=== PATIENT | male | born 1955 | race African-American/Black ===

== ENCOUNTER 2022-04-15 04:57 | Emergency (ER) | payer MEDICARE, MEDICAID ==
[~2022-04-15] VITALS: Ht 182.9 cm; Wt 119.0 kg
[2022-04-15 05:37] LABS: BG BASE EXCESS -1.7 mmol/L (-2.0-2.0); BG CARBOXYHEMOGLOBIN 2.5 % (0.5-1.5); BG DEOXYHEMOGLOBIN 4.6 % (0.0-5.0); BG FRACTION INSPIRED OXYGEN 32; BG HCO3 ACT 24.6 mmol/L (22.0-26.0); BG METHEMOGLOBIN 0.2 % (0.0-1.5); BG OXYGEN SATURATION 95.3 % (92.0-98.5); BG OXYHEMOGLOBIN 92.7 % (94.0-97.0); BG PH 7.336 (7.350-7.450); BG PO2 78.5 mmHg (75.0-100.0); BG SAMPLE SITE RIGHT RADIAL; BG TOTAL HEMOGLOBIN 15.4 g/dL (12.0-18.0); BG VENT MODE NASAL CANNULA
[2022-04-15 05:41] LABS: BASOPHILS % 0.6 % (0.0-2.0); EOSINOPHILS % 1.3 % (0.0-5.0); HEMATOCRIT. 45.8 % (42.0-52.0); HEMOGLOBIN. 15.1 g/dL (14.0-18.0); LYMPHOCYTES % 18.1 % (20.0-50.0); MEAN CORPUSCULAR HEMOGLOBIN 26.6 pg (28.0-32.0); MEAN CORPUSCULAR VOLUME 80.6 fL (80.0-94.0); MEAN PLATELET VOLUME 8.9 fl (7.4-10.4); MONOCYTES % 10.9 % (2.0-8.0); NEUTROPHILS % 69.1 % (40.0-76.0); PLATELET 171 x1000/uL (130-400); RED BLOOD CELL COUNT 5.68 mill/uL (4.7-6.1); RED CELL DISTRIBUTION WIDTH 16.2 % (11.6-14.6)
[2022-04-15 05:52] LABS: CHLORIDE 109 mEq/L (98-107)
[2022-04-15] MEDS ORDERED: FUROSEMIDE 40MG/4ML VIAL IVP ONE (06:45)
[2022-04-15 07:27] VITALS: BP 95/65
== END 2022-04-15 11:18 | disposition home or self-care (01) ==
LOC: EDBD 04:57 → ER 04:57 → EDBEDREQTM 09:08 → EDBEDREQ 09:08 → ENRESERV 09:47 → ER 11:18 → CANBEDREQ 11:44
DX: I50.9 Heart failure, unspecified (principal); I25.10 Atherosclerotic heart disease of native coronary artery without angina pectoris; Z95.810 Presence of automatic (implantable) cardiac defibrillator; Z20.822 Contact with and (suspected) exposure to COVID-19
CPT/HCPCS: 36415; 36600; 71045; 74176; 80053; 82375; 82805; 83880; 84484; 85025; 87426; 87804; 93005; 96374; 99285; C9803; J1940

== ENCOUNTER 2022-07-06 01:52 | Inpatient (IN) | payer MEDICARE, MEDICAID ==
[~2022-07-06] VITALS: Ht 182.9 cm; Wt 100.0 kg
[2022-07-06] MEDS ORDERED: IPRATROPIUM BROMIDE (0.02%) 0.5MG/2.5ML NEB HHN STA (02:21)
[2022-07-06] MEDS ORDERED: ALBUTEROL (0.083%) 2.5MG/3ML NEB HHN STA (02:21)
[2022-07-06 02:45] LABS: CHLORIDE 106 mEq/L (98-107)
[2022-07-06 02:58] LABS: BASOPHILS % 0.4 % (0.0-2.0); EOSINOPHILS % 0.5 % (0.0-5.0); HEMATOCRIT. 46.9 % (42.0-52.0); HEMOGLOBIN. 15.7 g/dL (14.0-18.0); LYMPHOCYTES % 14.8 % (20.0-50.0); MEAN CORPUSCULAR HEMOGLOBIN 27.4 pg (28.0-32.0); MEAN CORPUSCULAR VOLUME 82.1 fL (80.0-94.0); MONOCYTES % 12.1 % (2.0-8.0); NEUTROPHILS % 72.2 % (40.0-76.0); PLATELET 160 x1000/uL (130-400); RED BLOOD CELL COUNT 5.71 mill/uL (4.7-6.1); RED CELL DISTRIBUTION WIDTH 17.3 % (11.6-14.6)
[2022-07-06] MEDS ORDERED: FUROSEMIDE 40MG/4ML VIAL IVP ONE (04:45)
[2022-07-06 06:00] VITALS: BP 155/95
[2022-07-06] MEDS ORDERED: DOCUSATE SODIUM 100MG CAPSULE PO PRN (06:15)
[2022-07-06] MEDS ORDERED: ACETAMINOPHEN 325MG TABLET PO PRN (06:15)
[2022-07-06] MEDS ORDERED: ONDANSETRON HCL 4MG/2ML INJ IV PRN (06:15)
[2022-07-06] MEDS ORDERED: TRAMADOL 50MG TABLET PO PRN (06:15)
[2022-07-06] MEDS ORDERED: MAGNESIUM/ALUMINUM HYDROXIDE/SIMETHICONE 30ML UDC PO PRN (06:15)
[2022-07-06] MEDS ORDERED: GUAIFENESIN 200MG/10ML SUGAR FREE UDC PO PRN (06:15)
[2022-07-06] MEDS ORDERED: FUROSEMIDE 40MG/4ML VIAL IV SCH (06:30)
[2022-07-06] MEDS ORDERED: ENOXAPARIN 40MG/0.4ML SYR SUBCUT SCH (09:00)
[2022-07-06] MEDS ORDERED: CARVEDILOL 3.125 MG TABLET PO SCH (09:00)
== END 2022-07-06 06:27 | disposition left against medical advice (07) | DRG 189 ==
LOC: ER 01:52 → MICUSO 05:30
PROVIDERS: ADMIT Hospitalist; ATTEND Hospitalist
PROC: 5A09357 Assistance with Respiratory Ventilation, Less than 24 Consecutive Hours, Continuous Positive Airway Pressure (ICD-10-PCS; principal; 2022-07-06)
DX: J96.00 Acute respiratory failure, unspecified whether with hypoxia or hypercapnia (principal); I11.0 Hypertensive heart disease with heart failure; I50.9 Heart failure, unspecified; Z95.0 Presence of cardiac pacemaker; Z53.29 Procedure and treatment not carried out because of patient's decision for other reasons
CPT/HCPCS: 36415; 71045; 80053; 83605; 83880; 84484; 85025; 85379; 94640; 94660; 99291; J1940

== ENCOUNTER 2023-08-01 10:58 | Emergency (ER) | payer MEDICARE, MEDICAID ==
[~2023-08-01] VITALS: Ht 188 cm; Wt 86.0 kg
[2023-08-01 11:16] VITALS: TEMP 98.7; O2SAT 94
[2023-08-01 11:35] LABS: BASOPHILS % 0.2 % (0.0-2.0); EOSINOPHILS % 0.9 % (0.0-5.0); HEMATOCRIT. 43.2 % (42.0-52.0); HEMOGLOBIN. 14.1 g/dL (14.0-18.0); LYMPHOCYTES % 7.9 % (20.0-50.0); MEAN CORPUSCULAR HEMOGLOBIN 26.7 pg (28.0-32.0); MEAN CORPUSCULAR HGB CONC 32.6 g/dL (31.0-37.0); MEAN PLATELET VOLUME 8.7 fl (7.4-10.4); MONOCYTES % 8.7 % (2.0-8.0); NEUTROPHILS % 82.3 % (40.0-76.0); PLATELET 205 x1000/uL (130-400); RED BLOOD CELL COUNT 5.27 mill/uL (4.7-6.1); RED CELL DISTRIBUTION WIDTH 16.8 % (11.6-14.6); WHITE BLOOD COUNT 10.9 x1000/uL (4.5-11.0)
[2023-08-01 11:42] LABS: CHLORIDE 107 mEq/L (98-107); INDEX HEMOLYSI 1 (1-3); INDEX ICTERIC 1 (1-4); INDEX LIPEMIC 1 (1-3); SODIUM 140 mEq/L (136-145)
[2023-08-01 11:48] LABS: ALANINE AMINOTRANSFERASE 43 IU/L (13-61); ALBUMIN 2.2 g/dL (3.4-5.0); ASPARTATE AMINOTRANSFERASE 21 IU/L (15-37); BILIRUBIN TOTAL 0.5 mg/dL (0.1-1.0); CARBON DIOXIDE 30 mEq/L (21-32); CREATININE 1.5 mg/dL (0.6-1.3); GLUCOSE 227 mg/dL (70-105); PROTEIN TOTAL 6.6 g/dL (6.0-8.3); UREA NITROGEN BLOOD 35 mg/dL (7-21)
[2023-08-01] MEDS ORDERED: VANCOMYCIN 1G PREMIX 200 ML IV ONE (12:45)
[2023-08-01] MEDS ORDERED: PIPERACILLIN/TAZ 3.375G PREMIX 50 ML IV ONE (12:45)
[2023-08-01 13:34] VITALS: BP 132/63; PULSE 85; RESP 25
== END 2023-08-01 14:47 | disposition left against medical advice (07) ==
LOC: ER 10:58 → CANBEDREQ 14:42 → ER 14:47
DX: L08.89 Other specified local infections of the skin and subcutaneous tissue (principal); I10 Essential (primary) hypertension; E11.9 Type 2 diabetes mellitus without complications; I25.2 Old myocardial infarction; Z98.890 Other specified postprocedural states
CPT/HCPCS: 99284; 96365; 80053; 85025; 85651; 87040; 36415; 73630; 96368; J2543; J3370

== ENCOUNTER 2023-08-03 01:46 | Emergency (ER) | payer MEDICARE, MEDICAID ==
[~2023-08-03] VITALS: Ht 188 cm; Wt 90.0 kg
[2023-08-03 01:59] VITALS: BP 138/76; PULSE 81; RESP 16; TEMP 97.9; O2SAT 96
[2023-08-03] MEDS ORDERED: SODIUM CHLORIDE 0.9% 1,000 ML IV ONE (03:00)
[2023-08-03] MEDS ORDERED: VANCOMYCIN 1G PREMIX 200 ML IV ONE (03:00)
[2023-08-03] MEDS ORDERED: PIPERACILLIN/TAZ 3.375G PREMIX 50 ML IV ONE (03:00)
== END 2023-08-03 03:27 | disposition left against medical advice (07) ==
LOC: ER 01:46
DX: Z53.21 Procedure and treatment not carried out due to patient leaving prior to being seen by health care provider (principal)
CPT/HCPCS: 99281; J7030

== ENCOUNTER 2023-09-16 13:19 | Inpatient (IN) | payer MEDICARE, MEDICAID ==
[~2023-09-16] VITALS: Ht 180.3 cm; Wt 85.7 kg
[2023-09-16] MEDS ORDERED: SODIUM CHLORIDE 0.9% 1000ML BAG (SEPSIS BOLUS) IV ONE (14:00)
[2023-09-16 14:10] LABS: HEMOGLOBIN. 13.5 g/dL (14.0-18.0); MEAN CORPUSCULAR HEMOGLOBIN 25.6 pg (28.0-32.0); MEAN CORPUSCULAR HGB CONC 32.3 g/dL (31.0-37.0); MEAN CORPUSCULAR VOLUME 79.5 fL (80.0-94.0); MEAN PLATELET VOLUME 8.3 fl (7.4-10.4); PLATELET 357 x1000/uL (130-400); RED BLOOD CELL COUNT 5.28 mill/uL (4.7-6.1); RED CELL DISTRIBUTION WIDTH 17.4 % (11.6-14.6); WHITE BLOOD COUNT 19.4 x1000/uL (4.5-11.0)
[2023-09-16 14:14] LABS: INR 1.3; PROTHROMBIN TIME 13.9 sec (9.6-11.0)
[2023-09-16 14:18] LABS: DIFFERENTIAL COMMENT 1
[2023-09-16 14:20] LABS: CLARITY URINE CLEAR (CLEAR); COLOR URINE DARK YELLOW (YELLOW); GLUCOSE URINE NEGATIVE (NEGATIVE); KETONES URINE TRACE (NEGATIVE); LEUKOCYTE ESTERASE URINE NEGATIVE (NEGATIVE); NITRITE URINE NEGATIVE (NEGATIVE); OCCULT BLOOD URINE 2+ (NEGATIVE); PROTEIN URINE 3+ (NEGATIVE); SPECIFIC GRAVITY URINE 1.017 (1.005-1.030)
[2023-09-16 14:25] LABS: SQUAMOUS EPITHELIAL CELL URINE 1+ /lpf (RARE/1+); WBC URINE 0-2 /hpf (0-2); YEAST URINE NONE SEEN
[2023-09-16 14:31] LABS: BG BASE EXCESS 2.3 mmol/L (-2.0-2.0); BG CARBOXYHEMOGLOBIN 1.2 % (0.5-1.5); BG DEOXYHEMOGLOBIN 9.8 % (0.0-5.0); BG FRACTION INSPIRED OXYGEN 21; BG HCO3 ACT 27.8 mmol/L (22.0-26.0); BG METHEMOGLOBIN 0.2 % (0.0-1.5); BG OXYGEN SATURATION 90.1 % (92.0-98.5); BG OXYHEMOGLOBIN 88.8 % (94.0-97.0); BG PCO2 46.6 mmHg (35.0-45.0); BG PH 7.394 (7.350-7.450); BG PO2 63.8 mmHg (75.0-100.0); BG SAMPLE SITE RIGHT RADIAL; BG TOTAL HEMOGLOBIN 14.4 g/dL (12.0-18.0); BG VENT MODE ROOM AIR
[2023-09-16 14:36] LABS: CHLORIDE 119 mEq/L (98-107); INDEX HEMOLYSI 1 (1-3); INDEX ICTERIC 1 (1-4); INDEX LIPEMIC 1 (1-3); POTASSIUM 4.2 mEq/L (3.5-5.1); SODIUM 153 mEq/L (136-145)
[2023-09-16 14:38] LABS: CALCIUM 8.9 mg/dL (8.5-10.1)
[2023-09-16 14:45] LABS: ALANINE AMINOTRANSFERASE 71 IU/L (13-61); ALBUMIN 1.9 g/dL (3.4-5.0); ASPARTATE AMINOTRANSFERASE 76 IU/L (15-37); BILIRUBIN TOTAL 1.1 mg/dL (0.1-1.0); CARBON DIOXIDE 28 mEq/L (21-32); CREATININE 2.1 mg/dL (0.6-1.3); GLUCOSE 159 mg/dL (70-105); PROTEIN TOTAL 6.9 g/dL (6.0-8.3); UREA NITROGEN BLOOD 53 mg/dL (7-21)
[2023-09-16 14:47] LABS: COARSE GRANULAR CASTS URINE 0-5 /lpf; FINE GRANULAR CASTS URINE 0-5 /lpf; WAXY CASTS URINE 0-5 /lpf
[2023-09-16 14:48] LABS: MUCUS URINE 1+ /lpf (NONE/TRACE)
[2023-09-16 14:49] LABS: BACTERIA URINE 1+
[2023-09-16 15:07] LABS: ANISOCYTOSIS 1+; MICROCYTOSIS 1+; PLATELET ESTIMATE NORMAL
[2023-09-16] MEDS ORDERED: VANCOMYCIN 1G PREMIX 200 ML IV SCH ×2 (16:00→18:00)
[2023-09-16] MEDS ORDERED: PIPERACILLIN/TAZOBACTAM 3.375GM/50ML PREMIX IV ONE (16:00)
[2023-09-16] MEDS ORDERED: PIPERACILLIN/TAZ 3.375G PREMIX 50 ML IV NR ×2 (16:15→19:00)
[2023-09-16 17:16] LABS: AMMONIA 26 uMol/L (<32)
[2023-09-16] MEDS ORDERED: DIPHENHYDRAMINE 50MG/ML VIAL IV PRN (18:00)
[2023-09-16] MEDS ORDERED: MAGNESIUM/ALUMINUM HYDROXIDE/SIMETHICONE 30ML UDC PO PRN (18:00)
[2023-09-16] MEDS ORDERED: ACETAMINOPHEN 325MG TABLET PO PRN ×2 (18:00)
[2023-09-16] MEDS ORDERED: ONDANSETRON HCL 4MG/2ML INJ IV PRN (18:00)
[2023-09-16] MEDS ORDERED: CLONIDINE 0.1MG TABLET PO PRN (18:00)
[2023-09-16] MEDS: INSULIN LISPRO 100 UNITS/ML SUBCUT SCH ×2 (18:20→21:00)
[2023-09-16 20:00] VITALS: BP_SYST 130; BP_SYST 132; BP_DIAS 67; BP_DIAS 72; PULSE 75; PULSE 98; RESP 18; TEMP 97.3; TEMP 97.5
[2023-09-16] MEDS ORDERED: VANCOMYCIN 750MG PREMIX 150 ML IV NR (20:00)
[2023-09-16] MEDS: BLOOD SUGAR DIAGNOSTIC STRIP TEST SCH (21:05)
[2023-09-17] VITALS (55 sets, daily range): BP systolic 73–154; BP diastolic 51–94; PULSE 60–112; RESP 18–28; TEMP 94.8–98.5
[2023-09-17] MEDS: SODIUM CHLORIDE 0.45% 1,000 ML IV SCH ×3 (01:44→11:28)
[2023-09-17 05:42] LABS: HEMATOCRIT. 42.1 % (42.0-52.0); HEMOGLOBIN. 13.6 g/dL (14.0-18.0); MEAN CORPUSCULAR HEMOGLOBIN 26.2 pg (28.0-32.0); MEAN CORPUSCULAR HGB CONC 32.4 g/dL (31.0-37.0); MEAN CORPUSCULAR VOLUME 80.9 fL (80.0-94.0); MEAN PLATELET VOLUME 8.6 fl (7.4-10.4); PLATELET 313 x1000/uL (130-400); RED CELL DISTRIBUTION WIDTH 18.1 % (11.6-14.6); WHITE BLOOD COUNT 16.4 x1000/uL (4.5-11.0)
[2023-09-17] MEDS ORDERED: PIPERACILLIN/TAZOBACTAM 3.375G in DEXT 5% WATER 50ML IV SCH (06:00)
[2023-09-17 06:30] LABS: DIFFERENTIAL COMMENT 1
[2023-09-17] MEDS ORDERED: INSULIN LISPRO 100 UNITS/ML SUBCUT NR (06:45)
[2023-09-17] MEDS ORDERED: DEXTROSE 50% WATER 50ML SYRINGE IV PRN (06:45)
[2023-09-17 07:07] LABS: CHLORIDE 118 mEq/L (98-107); INDEX HEMOLYSI 1 (1-3); INDEX ICTERIC 1 (1-4); INDEX LIPEMIC 1 (1-3); POTASSIUM 4.5 mEq/L (3.5-5.1); SODIUM 150 mEq/L (136-145)
[2023-09-17 07:14] LABS: ALANINE AMINOTRANSFERASE 62 IU/L (13-61); ALBUMIN 1.7 g/dL (3.4-5.0); ASPARTATE AMINOTRANSFERASE 47 IU/L (15-37); BILIRUBIN TOTAL 1.1 mg/dL (0.1-1.0); CALCIUM 8.2 mg/dL (8.5-10.1); CARBON DIOXIDE 26 mEq/L (21-32); CREATININE 1.8 mg/dL (0.6-1.3); PHOSPHORUS 5.6 mg/dL (2.5-4.9); PROTEIN TOTAL 6.3 g/dL (6.0-8.3); UREA NITROGEN BLOOD 56 mg/dL (7-21)
[2023-09-17] MEDS: INSULIN GLARGINE 100 UNITS/ML SUBCUT SCH (07:16)
[2023-09-17] MEDS ORDERED: BLOOD SUGAR DIAGNOSTIC STRIP TEST SCH (07:40)
[2023-09-17] MEDS: BLOOD SUGAR DIAGNOSTIC STRIP TEST SCH ×4 (07:40→20:49)
[2023-09-17 08:00] LABS: GLUCOSE 415 mg/dL (70-105)
[2023-09-17] MEDS: INSULIN LISPRO 100 UNITS/ML SUBCUT SCH ×5 (08:51→21:11)
[2023-09-17] MEDS ORDERED: INSULIN GLARGINE 100 UNITS/ML SUBCUT SCH (10:00)
[2023-09-17] MEDS ORDERED: NOREPINEPHRINE 8 MG in DEXT 5% WATER 242 ML IV PRN (11:45)
[2023-09-17 11:54] LABS: BG BASE EXCESS -0.3 mmol/L (-2.0-2.0); BG CARBOXYHEMOGLOBIN 0.9 % (0.5-1.5); BG DEOXYHEMOGLOBIN 0.4 % (0.0-5.0); BG FRACTION INSPIRED OXYGEN 100; BG HCO3 ACT 24.9 mmol/L (22.0-26.0); BG METHEMOGLOBIN 0.2 % (0.0-1.5); BG OXYGEN SATURATION 99.6 % (92.0-98.5); BG OXYHEMOGLOBIN 98.5 % (94.0-97.0); BG PCO2 42.4 mmHg (35.0-45.0); BG PH 7.386 (7.350-7.450); BG PO2 290.4 mmHg (75.0-100.0); BG SAMPLE SITE ALINE; BG TOTAL HEMOGLOBIN 13.6 g/dL (12.0-18.0); BG TOTAL RESPIRATORY RATE 20 b/min; BG VENT MODE VENT - AC
[2023-09-17 13:45] LABS: PLATELET ESTIMATE NORMAL
[2023-09-17] MEDS: PIPERACILLIN/TAZOBACTAM 3.375G in DEXT 5% WATER 50ML IV SCH ×2 (14:33→21:48)
[2023-09-17] MEDS: VANCOMYCIN 1G PREMIX 200 ML IV SCH (14:33)
[2023-09-17] MEDS: MIDODRINE HCL 5MG TABLET NG SCH ×2 (15:41→23:43)
[2023-09-17 15:49] LABS: HEMOGLOBIN 13.6 g/dL (14.0-18.0); MEAN CORPUSCULAR HEMOGLOBIN 25.7 pg (28.0-32.0); MEAN CORPUSCULAR HGB CONC 32.3 g/dL (31.0-37.0); MEAN CORPUSCULAR VOLUME 79.8 fL (80.0-94.0); PLATELET 402 x1000/uL (130-400); RED BLOOD CELL COUNT 5.27 mill/uL (4.7-6.1); RED CELL DISTRIBUTION WIDTH 17.7 % (11.6-14.6); WHITE BLOOD COUNT 16.3 x1000/uL (4.5-11.0)
[2023-09-17 16:15] LABS: CHLORIDE 114 mEq/L (98-107); INDEX HEMOLYSI 1 (1-3); INDEX ICTERIC 1 (1-4); INDEX LIPEMIC 1 (1-3); SODIUM 150 mEq/L (136-145)
[2023-09-17] MEDS: NOREPINEPHRINE 8MG/250ML PMX 250ML IV PRN (16:16)
[2023-09-17 16:25] LABS: ALANINE AMINOTRANSFERASE 57 IU/L (13-61); ALBUMIN 1.6 g/dL (3.4-5.0); ASPARTATE AMINOTRANSFERASE 37 IU/L (15-37); BILIRUBIN TOTAL 0.9 mg/dL (0.1-1.0); CARBON DIOXIDE 30 mEq/L (21-32); CREATININE 1.8 mg/dL (0.6-1.3); GLUCOSE 336 mg/dL (70-105); NT PRO B-TYPE NATRIURETIC PEP 6011 pg/mL (5-125); PROTEIN TOTAL 6.3 g/dL (6.0-8.3); TROPONIN I HIGH SENSITIVITY 40 ng/L (<78); UREA NITROGEN BLOOD 44 mg/dL (7-21)
[2023-09-17] MEDS ORDERED: FENTANYL CITRATE/PF 2,500 MCG in SODIUM CHLORIDE 0.9% 200 ML IV PRN (18:45)
[2023-09-17] MEDS: PROPOFOL 10MG/ML 100ML 100 ML IV PRN ×2 (18:48→21:13)
[2023-09-17] MEDS: IPRATROPIUM/ALBUTEROL 0.5-3(2.5)MG/3ML NEB HHN SCH (20:53)
[2023-09-18] VITALS (92 sets, daily range): BP systolic 84–162; BP diastolic 25–102; PULSE 60–89; RESP 18–39; TEMP 96.4–98.6
[2023-09-18] MEDS: PROPOFOL 10MG/ML 100ML 100 ML IV PRN ×7 (01:08→23:19)
[2023-09-18] MEDS: IPRATROPIUM/ALBUTEROL 0.5-3(2.5)MG/3ML NEB HHN SCH ×4 (01:19→20:58)
[2023-09-18 05:13] LABS: HEMATOCRIT. 40.8 % (42.0-52.0); HEMOGLOBIN. 13.1 g/dL (14.0-18.0); MEAN CORPUSCULAR HEMOGLOBIN 25.3 pg (28.0-32.0); MEAN CORPUSCULAR HGB CONC 32.1 g/dL (31.0-37.0); MEAN CORPUSCULAR VOLUME 78.9 fL (80.0-94.0); MEAN PLATELET VOLUME 8.3 fl (7.4-10.4); PLATELET 356 x1000/uL (130-400); RED BLOOD CELL COUNT 5.17 mill/uL (4.7-6.1); RED CELL DISTRIBUTION WIDTH 17.9 % (11.6-14.6); WHITE BLOOD COUNT 21.1 x1000/uL (4.5-11.0)
[2023-09-18] MEDS: SODIUM CHLORIDE 0.45% 1,000 ML IV SCH (05:21)
[2023-09-18 05:27] LABS: POTASSIUM 3.5 mEq/L (3.5-5.1)
[2023-09-18 05:39] LABS: CALCIUM 8.6 mg/dL (8.5-10.1); CREATININE 1.8 mg/dL (0.6-1.3)
[2023-09-18] MEDS: PIPERACILLIN/TAZOBACTAM 3.375G in DEXT 5% WATER 50ML IV SCH ×3 (06:18→21:24)
[2023-09-18] MEDS: NOREPINEPHRINE 8MG/250ML PMX 250ML IV PRN (06:22)
[2023-09-18] MEDS: BLOOD SUGAR DIAGNOSTIC STRIP TEST SCH ×4 (06:41→23:32)
[2023-09-18] MEDS ORDERED: KCL 20MEQ/100ML PREMIX 100 ML IV NR (06:45)
[2023-09-18] MEDS: INSULIN LISPRO 100 UNITS/ML SUBCUT SCH ×4 (06:48→23:43)
[2023-09-18] MEDS: MIDODRINE HCL 5MG TABLET NG SCH ×3 (06:48→23:17)
[2023-09-18 07:03] LABS: DIFFERENTIAL COMMENT 1
[2023-09-18] MEDS: INSULIN GLARGINE 100 UNITS/ML SUBCUT SCH (10:00)
[2023-09-18 10:19] LABS: BG BASE EXCESS 4.2 mmol/L (-2.0-2.0); BG CARBOXYHEMOGLOBIN 0.3 % (0.5-1.5); BG DEOXYHEMOGLOBIN 1.2 % (0.0-5.0); BG FRACTION INSPIRED OXYGEN 80; BG HCO3 ACT 27.6 mmol/L (22.0-26.0); BG METHEMOGLOBIN 0.3 % (0.0-1.5); BG OXYGEN SATURATION 98.8 % (92.0-98.5); BG OXYHEMOGLOBIN 98.2 % (94.0-97.0); BG PCO2 37.3 mmHg (35.0-45.0); BG PH 7.487 (7.350-7.450); BG PO2 176.3 mmHg (75.0-100.0); BG SAMPLE SITE ALINE; BG TOTAL HEMOGLOBIN 14.3 g/dL (12.0-18.0); BG TOTAL RESPIRATORY RATE 20 b/min; BG VENT MODE VENT - AC
[2023-09-18 10:57] LABS: ANISOCYTOSIS 1+; PLATELET ESTIMATE NORMAL
[2023-09-18] MEDS: VANCOMYCIN 1G PREMIX 200 ML IV SCH (13:02)
[2023-09-18] MEDS: DEXTROSE 5% WATER 1,000 ML IV SCH (13:12)
[2023-09-18 16:15] LABS: INDEX HEMOLYSI 2 (1-3)
[2023-09-18 16:21] LABS: CREATINE KINASE 161 IU/L (39-308)
[2023-09-19] VITALS (97 sets, daily range): BP systolic 85–133; BP diastolic 44–80; PULSE 61–116; RESP 9–27; TEMP 97–98.3
[2023-09-19] MEDS: IPRATROPIUM/ALBUTEROL 0.5-3(2.5)MG/3ML NEB HHN SCH ×4 (02:30→20:34)
[2023-09-19] MEDS: PROPOFOL 10MG/ML 100ML 100 ML IV PRN ×5 (02:47→20:56)
[2023-09-19 05:09] LABS: HEMATOCRIT. 41.8 % (42.0-52.0); HEMOGLOBIN. 13.3 g/dL (14.0-18.0); MEAN CORPUSCULAR HEMOGLOBIN 25.3 pg (28.0-32.0); MEAN CORPUSCULAR HGB CONC 31.9 g/dL (31.0-37.0); MEAN CORPUSCULAR VOLUME 79.3 fL (80.0-94.0); MEAN PLATELET VOLUME 8.1 fl (7.4-10.4); PLATELET 273 x1000/uL (130-400); RED BLOOD CELL COUNT 5.27 mill/uL (4.7-6.1); RED CELL DISTRIBUTION WIDTH 18.1 % (11.6-14.6)
[2023-09-19 05:26] LABS: POTASSIUM 3.5 mEq/L (3.5-5.1)
[2023-09-19 05:40] LABS: CALCIUM 8.1 mg/dL (8.5-10.1); CREATININE 1.8 mg/dL (0.6-1.3)
[2023-09-19] MEDS: BLOOD SUGAR DIAGNOSTIC STRIP TEST SCH ×3 (05:44→18:05)
[2023-09-19] MEDS: DEXTROSE 5% WATER 1,000 ML IV SCH (06:06)
[2023-09-19] MEDS: PIPERACILLIN/TAZOBACTAM 3.375G in DEXT 5% WATER 50ML IV SCH ×3 (06:06→22:11)
[2023-09-19] MEDS: INSULIN LISPRO 100 UNITS/ML SUBCUT SCH ×3 (06:07→18:07)
[2023-09-19] MEDS: MIDODRINE HCL 5MG TABLET NG SCH ×3 (06:08→22:11)
[2023-09-19 06:42] LABS: DIFFERENTIAL COMMENT 1
[2023-09-19 08:17] LABS: ANISOCYTOSIS 1+; NUCLEATED RED BLOOD CELLS 1 /100 WBC; PLATELET ESTIMATE NORMAL
[2023-09-19] MEDS ORDERED: POLYMYXIN B SULFATE 500000 UNITS/VIAL ONE (08:43)
[2023-09-19] MEDS ORDERED: LIDOCAINE HCL 1% 10 MG/ML 10ML VIAL ONE (08:43)
[2023-09-19] MEDS ORDERED: VANCOMYCIN HCL 1 GM/VIAL ONE (08:43)
[2023-09-19] MEDS ORDERED: BUPIVACAINE HCL/PF 0.5% (5MG/ML) 10ML ONE (08:43)
[2023-09-19] MEDS ORDERED: GENTAMICIN SULF 40MG/ML 2ML VIAL ONE (08:43)
[2023-09-19] MEDS: VANCOMYCIN 1G PREMIX 200 ML IV SCH (09:11)
[2023-09-19] MEDS: INSULIN GLARGINE 100 UNITS/ML SUBCUT SCH (09:11)
[2023-09-19] MEDS ORDERED: ROCURONIUM BROMIDE 10MG/ML VIAL 5ML IV ONE ×2 (10:14→11:26)
[2023-09-19] MEDS ORDERED: DEXAMETHASONE 4MG/ML 1ML VIAL ONE (10:50)
[2023-09-19] MEDS ORDERED: ONDANSETRON HCL 4MG/2ML INJ ONE (10:50)
[2023-09-19] MEDS ORDERED: CARVEDILOL 3.125 MG TABLET NG NR (13:30)
[2023-09-19] MEDS ORDERED: KCL 20MEQ/100ML PREMIX 100 ML IV NR (13:30)
[2023-09-19] MEDS: CARVEDILOL 3.125 MG TABLET NG SCH (20:26)
[2023-09-20] VITALS (104 sets, daily range): BP systolic 86–142; BP diastolic 44–86; PULSE 64–111; RESP 0–33; TEMP 97.8–98.3
[2023-09-20] MEDS: BLOOD SUGAR DIAGNOSTIC STRIP TEST SCH ×5 (00:08→23:11)
[2023-09-20] MEDS: INSULIN LISPRO 100 UNITS/ML SUBCUT SCH ×5 (00:14→23:24)
[2023-09-20] MEDS: IPRATROPIUM/ALBUTEROL 0.5-3(2.5)MG/3ML NEB HHN SCH ×4 (01:08→20:16)
[2023-09-20] MEDS: PROPOFOL 10MG/ML 100ML 100 ML IV PRN ×6 (01:38→23:50)
[2023-09-20] MEDS: DEXTROSE 5% WATER 1,000 ML IV SCH ×3 (05:39→22:39)
[2023-09-20 05:45] LABS: POTASSIUM 4.1 mEq/L (3.5-5.1)
[2023-09-20] MEDS: PIPERACILLIN/TAZOBACTAM 3.375G in DEXT 5% WATER 50ML IV SCH ×2 (05:47→14:40)
[2023-09-20 05:54] LABS: ALBUMIN 1.3 g/dL (3.4-5.0); CALCIUM 7.6 mg/dL (8.5-10.1); CREATININE 1.6 mg/dL (0.6-1.3); PREALBUMIN 5.6 mg/dL (20.0-40.0); VANCOMYCIN TROUGH 12.3 ug/mL (5.0-10.0)
[2023-09-20] MEDS: MIDODRINE HCL 5MG TABLET NG SCH ×3 (06:29→22:33)
[2023-09-20 08:21] LABS: BG BASE EXCESS 3.9 mmol/L (-2.0-2.0); BG CARBOXYHEMOGLOBIN 0.7 % (0.5-1.5); BG DEOXYHEMOGLOBIN 5.1 % (0.0-5.0); BG HCO3 ACT 28.4 mmol/L (22.0-26.0); BG METHEMOGLOBIN 0.1 % (0.0-1.5); BG OXYGEN SATURATION 94.9 % (92.0-98.5); BG OXYHEMOGLOBIN 94.1 % (94.0-97.0); BG PCO2 42.6 mmHg (35.0-45.0); BG PH 7.442 (7.350-7.450); BG PO2 74.6 mmHg (75.0-100.0); BG SAMPLE SITE ALINE; BG TOTAL HEMOGLOBIN 13.4 g/dL (12.0-18.0); BG VENT MODE VENT - AC
[2023-09-20] MEDS: CARVEDILOL 3.125 MG TABLET NG SCH ×2 (08:50→21:26)
[2023-09-20] MEDS ORDERED: VANCOMYCIN 1.25GM PMX (XELLIA) 250 ML IV SCH (10:00)
[2023-09-20] MEDS ORDERED: LIDOCAINE HCL 1% 10 MG/ML 10ML VIAL ONE (10:00)
[2023-09-20] MEDS: INSULIN GLARGINE 100 UNITS/ML SUBCUT SCH (10:46)
[2023-09-20] MEDS: LEVETIRACETAM 500MG PREMIX 100 ML IV SCH ×2 (15:21→22:33)
[2023-09-20] MEDS: MEROPENEM 1,000 MG in SODIUM CHLORIDE 0.9% 100 ML IV SCH ×2 (15:24→23:23)
[2023-09-21] VITALS (101 sets, daily range): BP systolic 97–139; BP diastolic 58–87; PULSE 68–91; RESP 0–24; TEMP 97.5–99.4
[2023-09-21] MEDS: IPRATROPIUM/ALBUTEROL 0.5-3(2.5)MG/3ML NEB HHN SCH ×4 (01:02→20:18)
[2023-09-21] MEDS ORDERED: PROPOFOL 10MG/ML 100ML 100 ML IV PRN ×2 (01:15→20:30)
[2023-09-21] MEDS: PROPOFOL 10MG/ML 100ML 100 ML IV PRN (04:03)
[2023-09-21] MEDS: BLOOD SUGAR DIAGNOSTIC STRIP TEST SCH ×3 (05:23→17:21)
[2023-09-21 05:45] LABS: HEMATOCRIT. 39.5 % (42.0-52.0); HEMOGLOBIN. 12.9 g/dL (14.0-18.0); MEAN CORPUSCULAR HEMOGLOBIN 26.1 pg (28.0-32.0); MEAN CORPUSCULAR HGB CONC 32.6 g/dL (31.0-37.0); MEAN CORPUSCULAR VOLUME 80.2 fL (80.0-94.0); MEAN PLATELET VOLUME 8.9 fl (7.4-10.4); PLATELET 212 x1000/uL (130-400); RED BLOOD CELL COUNT 4.92 mill/uL (4.7-6.1); RED CELL DISTRIBUTION WIDTH 17.9 % (11.6-14.6); WHITE BLOOD COUNT 12.3 x1000/uL (4.5-11.0)
[2023-09-21 06:02] LABS: CALCIUM 7.7 mg/dL (8.5-10.1); CREATININE 1.7 mg/dL (0.6-1.3); PHOSPHORUS 2.9 mg/dL (2.5-4.9)
[2023-09-21 06:29] LABS: DIFFERENTIAL COMMENT 1
[2023-09-21] MEDS: MIDODRINE HCL 5MG TABLET NG SCH ×3 (06:33→22:40)
[2023-09-21] MEDS: INSULIN LISPRO 100 UNITS/ML SUBCUT SCH ×3 (06:37→17:21)
[2023-09-21] MEDS: MEROPENEM 1,000 MG in SODIUM CHLORIDE 0.9% 100 ML IV SCH ×2 (08:40→17:20)
[2023-09-21] MEDS ORDERED: LORAZEPAM 2MG/ML CPJ IV NR (10:00)
[2023-09-21] MEDS: LEVETIRACETAM 500MG PREMIX 100 ML IV SCH (10:01)
[2023-09-21] MEDS: INSULIN GLARGINE 100 UNITS/ML SUBCUT SCH (10:11)
[2023-09-21 12:34] LABS: ANISOCYTOSIS 1+; MICROCYTOSIS 1+; PLATELET ESTIMATE NORMAL
[2023-09-21] MEDS: LEVETIRACETAM 1,000 MG in SODIUM CHLORIDE 0.9% 100 ML IV SCH (21:10)
[2023-09-21] MEDS: CARVEDILOL 6.25 MG TABLET NG SCH (21:10)
[2023-09-22] VITALS (91 sets, daily range): BP systolic 94–154; BP diastolic 59–124; PULSE 70–120; RESP 0–32; TEMP 98.6–99.7
[2023-09-22] MEDS: BLOOD SUGAR DIAGNOSTIC STRIP TEST SCH ×4 (00:27→18:02)
[2023-09-22] MEDS: INSULIN LISPRO 100 UNITS/ML SUBCUT SCH ×4 (00:31→18:20)
[2023-09-22] MEDS: IPRATROPIUM/ALBUTEROL 0.5-3(2.5)MG/3ML NEB HHN SCH ×4 (00:37→20:17)
[2023-09-22] MEDS: MEROPENEM 1,000 MG in SODIUM CHLORIDE 0.9% 100 ML IV SCH (06:55)
[2023-09-22] MEDS: MIDODRINE HCL 5MG TABLET NG SCH ×3 (07:00→22:57)
[2023-09-22] MEDS: LEVETIRACETAM 1,000 MG in SODIUM CHLORIDE 0.9% 100 ML IV SCH ×2 (08:40→22:10)
[2023-09-22] MEDS: CARVEDILOL 6.25 MG TABLET NG SCH ×3 (08:40→22:04)
[2023-09-22] MEDS: INSULIN GLARGINE 100 UNITS/ML SUBCUT SCH ×2 (10:15→22:10)
[2023-09-22 11:01] LABS: BASOPHILS % 0.3 % (0.0-2.0); DIFFERENTIAL COMMENT 0; EOSINOPHILS % 0.9 % (0.0-5.0); HEMOGLOBIN. 12.3 g/dL (14.0-18.0); LYMPHOCYTES % 9.3 % (20.0-50.0); MEAN CORPUSCULAR HEMOGLOBIN 25.4 pg (28.0-32.0); MEAN CORPUSCULAR HGB CONC 32.5 g/dL (31.0-37.0); MEAN CORPUSCULAR VOLUME 78.1 fL (80.0-94.0); MEAN PLATELET VOLUME 8.2 fl (7.4-10.4); MONOCYTES % 10.3 % (2.0-8.0); NEUTROPHILS % 79.2 % (40.0-76.0); PLATELET 225 x1000/uL (130-400); RED BLOOD CELL COUNT 4.87 mill/uL (4.7-6.1); RED CELL DISTRIBUTION WIDTH 17.4 % (11.6-14.6); WHITE BLOOD COUNT 7.8 x1000/uL (4.5-11.0)
[2023-09-22] MEDS: LORAZEPAM 2MG/ML CPJ IV PRN (11:10)
[2023-09-22 12:03] LABS: POTASSIUM 3.8 mEq/L (3.5-5.1)
[2023-09-22 12:09] LABS: CALCIUM 8.2 mg/dL (8.5-10.1); CREATININE 1.6 mg/dL (0.6-1.3)
[2023-09-22] MEDS: PHENYTOIN 100 MG/4 ML UDC NG SCH ×2 (13:13→22:47)
[2023-09-22] MEDS: VANCOMYCIN 1.25GM PMX (XELLIA) 250 ML IV SCH (15:56)
[2023-09-22] MEDS: CLINDAMYCIN HCL 150MG CAPSULE PO SCH (18:20)
[2023-09-23] VITALS (87 sets, daily range): BP systolic 101–162; BP diastolic 53–141; PULSE 66–79; RESP 7–31; TEMP 98.5–98.7
[2023-09-23] MEDS: CLINDAMYCIN HCL 150MG CAPSULE PO SCH ×5 (00:15→23:54)
[2023-09-23] MEDS: BLOOD SUGAR DIAGNOSTIC STRIP TEST SCH ×4 (00:15→17:47)
[2023-09-23] MEDS: PROPOFOL 10MG/ML 100ML 100 ML IV PRN ×3 (00:32→23:17)
[2023-09-23] MEDS: INSULIN LISPRO 100 UNITS/ML SUBCUT SCH ×4 (00:33→17:48)
[2023-09-23 05:19] LABS: BASOPHILS % 0.1 % (0.0-2.0); DIFFERENTIAL COMMENT 0; EOSINOPHILS % 1.7 % (0.0-5.0); HEMATOCRIT. 35.8 % (42.0-52.0); MEAN CORPUSCULAR HEMOGLOBIN 26.2 pg (28.0-32.0); MEAN CORPUSCULAR HGB CONC 33.5 g/dL (31.0-37.0); MEAN CORPUSCULAR VOLUME 78.2 fL (80.0-94.0); MEAN PLATELET VOLUME 8.3 fl (7.4-10.4); NEUTROPHILS % 79.2 % (40.0-76.0); PLATELET 234 x1000/uL (130-400); RED BLOOD CELL COUNT 4.58 mill/uL (4.7-6.1); RED CELL DISTRIBUTION WIDTH 17.6 % (11.6-14.6); WHITE BLOOD COUNT 7.7 x1000/uL (4.5-11.0)
[2023-09-23 05:28] LABS: CHLORIDE 117 mEq/L (98-107); INDEX HEMOLYSI 1 (1-3); INDEX ICTERIC 1 (1-4); INDEX LIPEMIC 1 (1-3); POTASSIUM 3.7 mEq/L (3.5-5.1); SODIUM 148 mEq/L (136-145)
[2023-09-23 05:38] LABS: CALCIUM 8.2 mg/dL (8.5-10.1); CARBON DIOXIDE 30 mEq/L (21-32); CREATININE 1.3 mg/dL (0.6-1.3); GLUCOSE 294 mg/dL (70-105); PHENYTOIN 0.9 ug/mL (10-20); TRIGLYCERIDE 120 mg/dL (0-150); UREA NITROGEN BLOOD 40 mg/dL (7-21)
[2023-09-23] MEDS: PHENYTOIN 100 MG/4 ML UDC NG SCH ×2 (06:42→14:42)
[2023-09-23] MEDS: MIDODRINE HCL 5MG TABLET NG SCH ×3 (06:43→23:54)
[2023-09-23] MEDS: CARVEDILOL 6.25 MG TABLET NG SCH ×2 (08:10→21:42)
[2023-09-23] MEDS: LEVETIRACETAM 1,000 MG in SODIUM CHLORIDE 0.9% 100 ML IV SCH (08:10)
[2023-09-23] MEDS: INSULIN GLARGINE 100 UNITS/ML SUBCUT SCH ×2 (10:10→22:00)
[2023-09-23] MEDS: LORAZEPAM 2MG/ML CPJ IV PRN (10:10)
[2023-09-23] MEDS ORDERED: LACTULOSE 20G/30ML UDC NG NR (12:00)
[2023-09-23] MEDS ORDERED: BISACODYL 5MG TABLET PO PRN (12:00)
[2023-09-23] MEDS: VANCOMYCIN 1.25GM PMX (XELLIA) 250 ML IV SCH (14:42)
[2023-09-23] MEDS ORDERED: PHENYTOIN 100 MG/4 ML UDC NG NR (19:15)
[2023-09-23] MEDS: LEVETIRACETAM 1,500 MG in SODIUM CHLORIDE 0.9% 100 ML IV SCH (21:41)
[2023-09-23] MEDS ORDERED: PROPOFOL 10MG/ML 100ML 100 ML IV PRN (22:45)
[2023-09-24] VITALS (97 sets, daily range): BP systolic 97–149; BP diastolic 49–111; PULSE 63–100; RESP 0–36; TEMP 97–98.6
[2023-09-24] MEDS: INSULIN LISPRO 100 UNITS/ML SUBCUT SCH ×5 (02:11→23:46)
[2023-09-24 05:30] LABS: BASOPHILS % 0.6 % (0.0-2.0); DIFFERENTIAL COMMENT 0; EOSINOPHILS % 1.6 % (0.0-5.0); HEMATOCRIT. 36.3 % (42.0-52.0); HEMOGLOBIN. 11.7 g/dL (14.0-18.0); LYMPHOCYTES % 9.8 % (20.0-50.0); MEAN CORPUSCULAR HEMOGLOBIN 25.6 pg (28.0-32.0); MEAN CORPUSCULAR HGB CONC 32.3 g/dL (31.0-37.0); MEAN CORPUSCULAR VOLUME 79.2 fL (80.0-94.0); MEAN PLATELET VOLUME 8.5 fl (7.4-10.4); MONOCYTES % 6.4 % (2.0-8.0); NEUTROPHILS % 81.6 % (40.0-76.0); PLATELET 258 x1000/uL (130-400); RED BLOOD CELL COUNT 4.58 mill/uL (4.7-6.1); RED CELL DISTRIBUTION WIDTH 18.3 % (11.6-14.6); WHITE BLOOD COUNT 7.8 x1000/uL (4.5-11.0)
[2023-09-24 05:46] LABS: CHLORIDE 118 mEq/L (98-107); INDEX HEMOLYSI 1 (1-3); INDEX ICTERIC 1 (1-4); INDEX LIPEMIC 1 (1-3); POTASSIUM 3.9 mEq/L (3.5-5.1); SODIUM 148 mEq/L (136-145)
[2023-09-24 05:50] LABS: CALCIUM 8.3 mg/dL (8.5-10.1); CARBON DIOXIDE 26 mEq/L (21-32); CREATININE 1.2 mg/dL (0.6-1.3); GLUCOSE 284 mg/dL (70-105); TRIGLYCERIDE 123 mg/dL (0-150); UREA NITROGEN BLOOD 37 mg/dL (7-21)
[2023-09-24] MEDS: MIDODRINE HCL 5MG TABLET NG SCH ×3 (06:14→22:33)
[2023-09-24] MEDS: CLINDAMYCIN HCL 150MG CAPSULE PO SCH ×4 (06:14→23:45)
[2023-09-24] MEDS: BLOOD SUGAR DIAGNOSTIC STRIP TEST SCH ×5 (06:16→23:36)
[2023-09-24] MEDS: PHENYTOIN 100 MG/4 ML UDC NG SCH ×2 (09:00→17:58)
[2023-09-24] MEDS: PROPOFOL 10MG/ML 100ML 100 ML IV PRN ×2 (09:18→16:58)
[2023-09-24] MEDS: LEVETIRACETAM 1,500 MG in SODIUM CHLORIDE 0.9% 100 ML IV SCH ×2 (09:33→21:03)
[2023-09-24] MEDS: CARVEDILOL 6.25 MG TABLET NG SCH ×2 (09:34→21:03)
[2023-09-24] MEDS: DOCUSATE SODIUM SUGAR FREE 100MG/10ML UDC NG SCH (09:35)
[2023-09-24] MEDS: METOLAZONE 2.5MG TABLET NG SCH ×2 (10:24→16:56)
[2023-09-24] MEDS: INSULIN GLARGINE 100 UNITS/ML SUBCUT SCH ×2 (13:24→22:33)
[2023-09-24] MEDS: VANCOMYCIN 1.25GM PMX (XELLIA) 250 ML IV SCH (15:55)
[2023-09-25] VITALS (78 sets, daily range): BP systolic 95–164; BP diastolic 52–93; PULSE 60–78; RESP 0–35; TEMP 97.4–98.7
[2023-09-25] MEDS: PROPOFOL 10MG/ML 100ML 100 ML IV PRN ×4 (01:45→13:07)
[2023-09-25 05:18] LABS: BASOPHILS % 0.7 % (0.0-2.0); CALCIUM 8.3 mg/dL (8.5-10.1); CHLORIDE 119 mEq/L (98-107); DIFFERENTIAL COMMENT 0; EOSINOPHILS % 1.4 % (0.0-5.0); HEMOGLOBIN. 11.4 g/dL (14.0-18.0); INDEX HEMOLYSI 1 (1-3); INDEX ICTERIC 1 (1-4); INDEX LIPEMIC 1 (1-3); LYMPHOCYTES % 14.1 % (20.0-50.0); MEAN CORPUSCULAR HEMOGLOBIN 25.2 pg (28.0-32.0); MEAN CORPUSCULAR HGB CONC 32.4 g/dL (31.0-37.0); MEAN CORPUSCULAR VOLUME 77.6 fL (80.0-94.0); MEAN PLATELET VOLUME 8.6 fl (7.4-10.4); MONOCYTES % 9.4 % (2.0-8.0); NEUTROPHILS % 74.4 % (40.0-76.0); PLATELET 266 x1000/uL (130-400); POTASSIUM 3.5 mEq/L (3.5-5.1); RED BLOOD CELL COUNT 4.51 mill/uL (4.7-6.1); RED CELL DISTRIBUTION WIDTH 17.8 % (11.6-14.6); SODIUM 151 mEq/L (136-145); WHITE BLOOD COUNT 6.7 x1000/uL (4.5-11.0)
[2023-09-25 05:25] LABS: CARBON DIOXIDE 28 mEq/L (21-32); CREATININE 1.3 mg/dL (0.6-1.3); GLUCOSE 248 mg/dL (70-105); UREA NITROGEN BLOOD 39 mg/dL (7-21)
[2023-09-25] MEDS: CLINDAMYCIN HCL 150MG CAPSULE PO SCH ×4 (06:17→23:19)
[2023-09-25] MEDS: BLOOD SUGAR DIAGNOSTIC STRIP TEST SCH ×4 (06:33→23:36)
[2023-09-25] MEDS: INSULIN LISPRO 100 UNITS/ML SUBCUT SCH ×4 (06:36→23:41)
[2023-09-25] MEDS: MIDODRINE HCL 5MG TABLET NG SCH ×3 (07:36→23:18)
[2023-09-25] MEDS: PHENYTOIN 100 MG/4 ML UDC NG SCH ×2 (08:18→18:22)
[2023-09-25] MEDS: DOCUSATE SODIUM SUGAR FREE 100MG/10ML UDC NG SCH (08:18)
[2023-09-25] MEDS: LEVETIRACETAM 1,500 MG in SODIUM CHLORIDE 0.9% 100 ML IV SCH ×2 (08:20→21:47)
[2023-09-25] MEDS: METOLAZONE 2.5MG TABLET NG SCH ×2 (08:21→18:23)
[2023-09-25] MEDS: CARVEDILOL 6.25 MG TABLET NG SCH ×2 (08:22→21:48)
[2023-09-25] MEDS ORDERED: DEXTROSE 5% WATER 1,000 ML IV ONE (08:45)
[2023-09-25] MEDS ORDERED: POTASSIUM CHLORIDE 20MEQ/PACKET NG NR (08:45)
[2023-09-25] MEDS: INSULIN GLARGINE 100 UNITS/ML SUBCUT SCH ×2 (12:23→22:14)
[2023-09-25] MEDS: VANCOMYCIN 1.25GM PMX (XELLIA) 250 ML IV SCH (15:23)
[2023-09-26] VITALS (46 sets, daily range): BP systolic 98–146; BP diastolic 61–100; PULSE 65–92; RESP 5–37; TEMP 98.2–100.5
[2023-09-26] MEDS: PROPOFOL 10MG/ML 100ML 100 ML IV PRN (00:59)
[2023-09-26] MEDS ORDERED: PROPOFOL 10MG/ML 100ML 100 ML IV PRN (02:00)
[2023-09-26] MEDS: LORAZEPAM 2MG/ML CPJ IV PRN ×2 (04:16→10:15)
[2023-09-26] MEDS: CLINDAMYCIN HCL 150MG CAPSULE PO SCH ×3 (05:09→17:20)
[2023-09-26] MEDS: INSULIN LISPRO 100 UNITS/ML SUBCUT SCH ×3 (05:09→17:21)
[2023-09-26] MEDS: BLOOD SUGAR DIAGNOSTIC STRIP TEST SCH ×3 (05:10→17:15)
[2023-09-26 05:34] LABS: BASOPHILS % 0.7 % (0.0-2.0); DIFFERENTIAL COMMENT 0; EOSINOPHILS % 0.8 % (0.0-5.0); HEMATOCRIT. 37.3 % (42.0-52.0); HEMOGLOBIN. 12.3 g/dL (14.0-18.0); LYMPHOCYTES % 13.3 % (20.0-50.0); MEAN CORPUSCULAR HEMOGLOBIN 25.7 pg (28.0-32.0); MEAN CORPUSCULAR HGB CONC 32.9 g/dL (31.0-37.0); MEAN CORPUSCULAR VOLUME 78.1 fL (80.0-94.0); MEAN PLATELET VOLUME 8.5 fl (7.4-10.4); MONOCYTES % 7.8 % (2.0-8.0); NEUTROPHILS % 77.4 % (40.0-76.0); PLATELET 272 x1000/uL (130-400); RED BLOOD CELL COUNT 4.78 mill/uL (4.7-6.1); RED CELL DISTRIBUTION WIDTH 18.9 % (11.6-14.6); WHITE BLOOD COUNT 8.2 x1000/uL (4.5-11.0)
[2023-09-26 05:35] LABS: CALCIUM 8.9 mg/dL (8.5-10.1); CHLORIDE 117 mEq/L (98-107); INDEX HEMOLYSI 1 (1-3); INDEX ICTERIC 1 (1-4); INDEX LIPEMIC 1 (1-3); POTASSIUM 3.6 mEq/L (3.5-5.1); SODIUM 148 mEq/L (136-145); UREA NITROGEN BLOOD 37 mg/dL (7-21)
[2023-09-26 05:39] LABS: CARBON DIOXIDE 27 mEq/L (21-32); CREATININE 1.2 mg/dL (0.6-1.3); GLUCOSE 160 mg/dL (70-105); TRIGLYCERIDE 111 mg/dL (0-150)
[2023-09-26] MEDS ORDERED: KCL 20MEQ/100ML PREMIX 100 ML IV NR (06:30)
[2023-09-26] MEDS: MIDODRINE HCL 5MG TABLET NG SCH ×2 (07:00→14:16)
[2023-09-26] MEDS: DOCUSATE SODIUM SUGAR FREE 100MG/10ML UDC NG SCH (09:00)
[2023-09-26] MEDS: PHENYTOIN 100 MG/4 ML UDC NG SCH ×2 (09:00→17:20)
[2023-09-26] MEDS: METOLAZONE 2.5MG TABLET NG SCH ×2 (09:00→17:20)
[2023-09-26] MEDS: CARVEDILOL 6.25 MG TABLET NG SCH ×2 (09:00→22:03)
[2023-09-26] MEDS: LEVETIRACETAM 1,500 MG in SODIUM CHLORIDE 0.9% 100 ML IV SCH ×2 (09:21→22:02)
[2023-09-26] MEDS: INSULIN GLARGINE 100 UNITS/ML SUBCUT SCH ×2 (09:23→22:00)
[2023-09-26] MEDS ORDERED: LIDOCAINE HCL 1%/EPI 1:200,000 30 ML VIAL ONE (11:04)
[2023-09-26] MEDS ORDERED: MORPHINE SULFATE 2 MG/ML CPJ (NOT FOR IM USE) IV PRN (12:15)
[2023-09-26] MEDS ORDERED: LORAZEPAM 2MG/ML CPJ IV PRN (12:15)
[2023-09-26] MEDS ORDERED: NALOXONE HCL 0.4MG/ML VIAL IV PRN (12:30)
[2023-09-26] MEDS ORDERED: VECURONIUM BROMIDE 10 MG/VIAL IV ONE (12:52)
[2023-09-26] MEDS: VANCOMYCIN 1.25GM PMX (XELLIA) 250 ML IV SCH (14:17)
[2023-09-26] MEDS: DEXTROSE 50% WATER 50ML SYRINGE IV PRN (17:20)
[2023-09-26] MEDS: DEXT 5%/0.45% NACL 1000ML 1,000 ML IV SCH (22:19)
[2023-09-27] VITALS (65 sets, daily range): BP systolic 98–148; BP diastolic 62–97; PULSE 70–121; RESP 15–33; TEMP 97.8–99.2
[2023-09-27] MEDS: CLINDAMYCIN HCL 150MG CAPSULE PO SCH ×3 (00:58→12:08)
[2023-09-27] MEDS: MIDODRINE HCL 5MG TABLET NG SCH ×3 (00:58→15:00)
[2023-09-27] MEDS: DEXTROSE 50% WATER 50ML SYRINGE IV PRN (01:11)
[2023-09-27 03:12] LABS: BASOPHILS % 0.4 % (0.0-2.0); DIFFERENTIAL COMMENT 0; EOSINOPHILS % 0.5 % (0.0-5.0); HEMATOCRIT. 38.4 % (42.0-52.0); HEMOGLOBIN. 12.5 g/dL (14.0-18.0); LYMPHOCYTES % 14.9 % (20.0-50.0); MEAN CORPUSCULAR HEMOGLOBIN 25.4 pg (28.0-32.0); MEAN CORPUSCULAR HGB CONC 32.5 g/dL (31.0-37.0); MEAN CORPUSCULAR VOLUME 78.3 fL (80.0-94.0); MEAN PLATELET VOLUME 8.6 fl (7.4-10.4); MONOCYTES % 8.6 % (2.0-8.0); NEUTROPHILS % 75.6 % (40.0-76.0); PLATELET 253 x1000/uL (130-400); RED BLOOD CELL COUNT 4.91 mill/uL (4.7-6.1); RED CELL DISTRIBUTION WIDTH 18.5 % (11.6-14.6); WHITE BLOOD COUNT 7.5 x1000/uL (4.5-11.0)
[2023-09-27 03:23] LABS: INR 1.1; PROTHROMBIN TIME 11.4 sec (9.6-11.0)
[2023-09-27 03:30] LABS: CHLORIDE 116 mEq/L (98-107); INDEX HEMOLYSI 1 (1-3); INDEX ICTERIC 1 (1-4); INDEX LIPEMIC 1 (1-3); POTASSIUM 3.6 mEq/L (3.5-5.1); SODIUM 146 mEq/L (136-145)
[2023-09-27 03:32] LABS: CALCIUM 8.3 mg/dL (8.5-10.1)
[2023-09-27 03:41] LABS: CARBON DIOXIDE 25 mEq/L (21-32); CREATININE 1.1 mg/dL (0.6-1.3); GLUCOSE 114 mg/dL (70-105); PHOSPHORUS 3.2 mg/dL (2.5-4.9); UREA NITROGEN BLOOD 30 mg/dL (7-21)
[2023-09-27] MEDS: INSULIN LISPRO 100 UNITS/ML SUBCUT SCH ×5 (06:00→23:39)
[2023-09-27] MEDS: BLOOD SUGAR DIAGNOSTIC STRIP TEST SCH ×5 (06:00→23:38)
[2023-09-27] MEDS: METOLAZONE 2.5MG TABLET NG SCH ×2 (08:35→17:53)
[2023-09-27] MEDS: DOCUSATE SODIUM SUGAR FREE 100MG/10ML UDC NG SCH (08:35)
[2023-09-27] MEDS: LEVETIRACETAM 1,500 MG in SODIUM CHLORIDE 0.9% 100 ML IV SCH ×2 (08:36→21:58)
[2023-09-27] MEDS: PHENYTOIN 100 MG/4 ML UDC NG SCH ×2 (08:36→17:53)
[2023-09-27] MEDS: CARVEDILOL 12.5MG TABLET NG SCH ×2 (09:00→21:35)
[2023-09-27] MEDS: INSULIN GLARGINE 100 UNITS/ML SUBCUT SCH ×2 (09:18→22:00)
[2023-09-27] MEDS: DEXT 5%/0.45% NACL 1000ML 1,000 ML IV SCH ×2 (15:02→21:35)
[2023-09-27] MEDS: MEROPENEM 1,000 MG in SODIUM CHLORIDE 0.9% 100 ML IV SCH ×2 (15:25→23:38)
[2023-09-27] MEDS ORDERED: ETOMIDATE 2MG/ML 10ML VIAL IV ONE (17:57)
[2023-09-27] MEDS ORDERED: DEXAMETHASONE 4MG/ML 1ML VIAL ONE (17:58)
[2023-09-27] MEDS ORDERED: PROPOFOL 200MG/20ML VIAL IV ONE (17:58)
[2023-09-28] VITALS (24 sets, daily range): BP systolic 106–135; BP diastolic 60–75; PULSE 70–99; RESP 16–36; TEMP 97.5–98.5
[2023-09-28 05:22] LABS: BASOPHILS % 0.3 % (0.0-2.0); EOSINOPHILS % 0.6 % (0.0-5.0); HEMOGLOBIN. 13.3 g/dL (14.0-18.0); LYMPHOCYTES % 12.7 % (20.0-50.0); MEAN CORPUSCULAR HEMOGLOBIN 25.5 pg (28.0-32.0); MEAN CORPUSCULAR HGB CONC 31.8 g/dL (31.0-37.0); MEAN CORPUSCULAR VOLUME 80.3 fL (80.0-94.0); MEAN PLATELET VOLUME 9.5 fl (7.4-10.4); MONOCYTES % 7.2 % (2.0-8.0); NEUTROPHILS % 79.2 % (40.0-76.0); PLATELET 76 x1000/uL (130-400); RED BLOOD CELL COUNT 5.22 mill/uL (4.7-6.1); RED CELL DISTRIBUTION WIDTH 18.9 % (11.6-14.6); WHITE BLOOD COUNT 11.3 x1000/uL (4.5-11.0)
[2023-09-28 05:29] LABS: CHLORIDE 118 mEq/L (98-107); INDEX HEMOLYSI 5 (1-3); INDEX ICTERIC 1 (1-4); INDEX LIPEMIC 1 (1-3); SODIUM 145 mEq/L (136-145)
[2023-09-28 05:35] LABS: CALCIUM 8.4 mg/dL (8.5-10.1); CARBON DIOXIDE 24 mEq/L (21-32); CREATININE 1.2 mg/dL (0.6-1.3); GLUCOSE 120 mg/dL (70-105); UREA NITROGEN BLOOD 30 mg/dL (7-21)
[2023-09-28 05:41] LABS: POTASSIUM 5.2 mEq/L (3.5-5.1)
[2023-09-28] MEDS: INSULIN LISPRO 100 UNITS/ML SUBCUT SCH ×3 (06:00→18:00)
[2023-09-28] MEDS: BLOOD SUGAR DIAGNOSTIC STRIP TEST SCH ×3 (06:00→18:46)
[2023-09-28] MEDS: METOCLOPRAMIDE HCL 10MG/2ML VIAL IV SCH ×3 (06:19→18:48)
[2023-09-28] MEDS: MIDODRINE HCL 5MG TABLET NG SCH ×2 (06:20)
[2023-09-28] MEDS: MEROPENEM 1,000 MG in SODIUM CHLORIDE 0.9% 100 ML IV SCH ×2 (09:11→15:29)
[2023-09-28] MEDS: INSULIN GLARGINE 100 UNITS/ML SUBCUT SCH ×2 (09:17→22:03)
[2023-09-28] MEDS: LEVETIRACETAM 1,500 MG in SODIUM CHLORIDE 0.9% 100 ML IV SCH ×2 (09:18→20:49)
[2023-09-28] MEDS: DOCUSATE SODIUM SUGAR FREE 100MG/10ML UDC NG SCH (09:19)
[2023-09-28] MEDS: CARVEDILOL 12.5MG TABLET NG SCH ×2 (09:20→20:49)
[2023-09-28] MEDS: PHENYTOIN 100 MG/4 ML UDC NG SCH ×2 (09:20→18:48)
[2023-09-28] MEDS: METOLAZONE 2.5MG TABLET NG SCH ×2 (09:23→18:48)
[2023-09-28] MEDS ORDERED: SODIUM POLYSTYRENE SULFONATE 15 G/60 ML BOT PO NR (09:30)
[2023-09-28] MEDS ORDERED: PHENYTOIN SODIUM 100MG/2ML VIAL IV NR (20:00)
[2023-09-29] VITALS (22 sets, daily range): BP systolic 100–136; BP diastolic 58–93; PULSE 70–96; RESP 16–26; TEMP 97.2–98
[2023-09-29] MEDS: MEROPENEM 1,000 MG in SODIUM CHLORIDE 0.9% 100 ML IV SCH ×4 (00:08→23:13)
[2023-09-29] MEDS: METOCLOPRAMIDE HCL 10MG/2ML VIAL IV SCH ×5 (00:08→23:35)
[2023-09-29] MEDS: INSULIN LISPRO 100 UNITS/ML SUBCUT SCH ×5 (00:25→23:34)
[2023-09-29] MEDS: BLOOD SUGAR DIAGNOSTIC STRIP TEST SCH ×5 (06:00→23:35)
[2023-09-29 07:19] LABS: BASOPHILS % 0.2 % (0.0-2.0); DIFFERENTIAL COMMENT 0; EOSINOPHILS % 0.7 % (0.0-5.0); HEMATOCRIT. 37.3 % (42.0-52.0); HEMOGLOBIN. 12.1 g/dL (14.0-18.0); MEAN CORPUSCULAR HEMOGLOBIN 25.5 pg (28.0-32.0); MEAN CORPUSCULAR HGB CONC 32.5 g/dL (31.0-37.0); MEAN CORPUSCULAR VOLUME 78.4 fL (80.0-94.0); MEAN PLATELET VOLUME 8.6 fl (7.4-10.4); MONOCYTES % 7.9 % (2.0-8.0); NEUTROPHILS % 73.2 % (40.0-76.0); PLATELET 261 x1000/uL (130-400); RED BLOOD CELL COUNT 4.76 mill/uL (4.7-6.1); RED CELL DISTRIBUTION WIDTH 18.4 % (11.6-14.6); WHITE BLOOD COUNT 9.4 x1000/uL (4.5-11.0)
[2023-09-29 07:46] LABS: CALCIUM 8.3 mg/dL (8.5-10.1); CHLORIDE 119 mEq/L (98-107); GLUCOSE 201 mg/dL (70-105); INDEX HEMOLYSI 1 (1-3); INDEX ICTERIC 1 (1-4); INDEX LIPEMIC 1 (1-3); POTASSIUM 3.2 mEq/L (3.5-5.1); SODIUM 151 mEq/L (136-145); UREA NITROGEN BLOOD 32 mg/dL (7-21)
[2023-09-29 07:55] LABS: CARBON DIOXIDE 25 mEq/L (21-32); CREATININE 1.3 mg/dL (0.6-1.3); PHENYTOIN 5.2 ug/mL (10-20)
[2023-09-29] MEDS: DOCUSATE SODIUM SUGAR FREE 100MG/10ML UDC NG SCH (09:00)
[2023-09-29] MEDS ORDERED: POTASSIUM CHLORIDE 20MEQ/PACKET PO NR (09:30)
[2023-09-29] MEDS: LEVETIRACETAM 1,500 MG in SODIUM CHLORIDE 0.9% 100 ML IV SCH ×2 (09:52→21:55)
[2023-09-29] MEDS: PHENYTOIN 100 MG/4 ML UDC NG SCH ×2 (09:52→17:56)
[2023-09-29] MEDS: CARVEDILOL 12.5MG TABLET NG SCH ×2 (09:53→21:56)
[2023-09-29] MEDS: METOLAZONE 2.5MG TABLET NG SCH ×2 (09:53→17:56)
[2023-09-29] MEDS: DEXTROSE 5% WATER 1,000 ML IV SCH (09:58)
[2023-09-29] MEDS: INSULIN GLARGINE 100 UNITS/ML SUBCUT SCH ×2 (10:00→22:42)
[2023-09-30] VITALS (23 sets, daily range): BP systolic 115–149; BP diastolic 61–99; PULSE 73–95; RESP 16–35; TEMP 98.1–99.3
[2023-09-30] MEDS: DEXTROSE 5% WATER 1,000 ML IV SCH (02:10)
[2023-09-30] MEDS: METOCLOPRAMIDE HCL 10MG/2ML VIAL IV SCH ×3 (06:06→23:18)
[2023-09-30] MEDS: INSULIN LISPRO 100 UNITS/ML SUBCUT SCH ×4 (06:08→23:33)
[2023-09-30] MEDS: BLOOD SUGAR DIAGNOSTIC STRIP TEST SCH ×4 (06:08→23:33)
[2023-09-30 06:57] LABS: BASOPHILS % 0.5 % (0.0-2.0); DIFFERENTIAL COMMENT 0; EOSINOPHILS % 0.5 % (0.0-5.0); HEMATOCRIT. 34.9 % (42.0-52.0); HEMOGLOBIN. 11.5 g/dL (14.0-18.0); LYMPHOCYTES % 15.9 % (20.0-50.0); MEAN CORPUSCULAR VOLUME 78.8 fL (80.0-94.0); MEAN PLATELET VOLUME 8.9 fl (7.4-10.4); MONOCYTES % 8.9 % (2.0-8.0); NEUTROPHILS % 74.2 % (40.0-76.0); PLATELET 270 x1000/uL (130-400); RED BLOOD CELL COUNT 4.43 mill/uL (4.7-6.1); RED CELL DISTRIBUTION WIDTH 18.6 % (11.6-14.6); WHITE BLOOD COUNT 10.5 x1000/uL (4.5-11.0)
[2023-09-30 07:15] LABS: CHLORIDE 117 mEq/L (98-107); INDEX HEMOLYSI 2 (1-3); INDEX ICTERIC 1 (1-4); INDEX LIPEMIC 1 (1-3); POTASSIUM 3.4 mEq/L (3.5-5.1); SODIUM 147 mEq/L (136-145)
[2023-09-30 07:16] LABS: CALCIUM 8.4 mg/dL (8.5-10.1)
[2023-09-30 07:26] LABS: CARBON DIOXIDE 25 mEq/L (21-32); CREATININE 1.2 mg/dL (0.6-1.3); GLUCOSE 223 mg/dL (70-105); UREA NITROGEN BLOOD 34 mg/dL (7-21)
[2023-09-30] MEDS: MEROPENEM 1,000 MG in SODIUM CHLORIDE 0.9% 100 ML IV SCH ×3 (07:29→23:17)
[2023-09-30] MEDS ORDERED: POTASSIUM CHLORIDE 20MEQ/PACKET PO NR (08:30)
[2023-09-30] MEDS: PHENYTOIN 100 MG/4 ML UDC NG SCH ×2 (08:43→17:14)
[2023-09-30] MEDS: LEVETIRACETAM 1,500 MG in SODIUM CHLORIDE 0.9% 100 ML IV SCH ×2 (08:43→21:32)
[2023-09-30] MEDS: METOLAZONE 2.5MG TABLET NG SCH ×2 (08:44→17:14)
[2023-09-30] MEDS: CARVEDILOL 12.5MG TABLET NG SCH ×2 (08:44→21:32)
[2023-09-30] MEDS: DOCUSATE SODIUM SUGAR FREE 100MG/10ML UDC NG SCH (08:44)
[2023-09-30] MEDS ORDERED: DESMOPRESSIN ACETATE 4MCG/ML AMP IV SCH (09:00)
[2023-09-30] MEDS: INSULIN GLARGINE 100 UNITS/ML SUBCUT SCH ×2 (09:34→21:33)
[2023-09-30] MEDS ORDERED: LACTULOSE 20G/30ML UDC PO NR (16:00)
[2023-10-01] VITALS (21 sets, daily range): BP systolic 113–141; BP diastolic 59–75; PULSE 64–76; RESP 13–28; TEMP 97.8–98.6
[2023-10-01] MEDS: INSULIN LISPRO 100 UNITS/ML SUBCUT SCH ×4 (06:22→23:39)
[2023-10-01] MEDS: METOCLOPRAMIDE HCL 10MG/2ML VIAL IV SCH ×4 (06:24→23:11)
[2023-10-01] MEDS: BLOOD SUGAR DIAGNOSTIC STRIP TEST SCH ×4 (06:24→23:14)
[2023-10-01 08:11] LABS: CHLORIDE 117 mEq/L (98-107); INDEX HEMOLYSI 1 (1-3); INDEX ICTERIC 1 (1-4); INDEX LIPEMIC 1 (1-3); POTASSIUM 3.3 mEq/L (3.5-5.1); SODIUM 147 mEq/L (136-145)
[2023-10-01 08:18] LABS: CALCIUM 8.6 mg/dL (8.5-10.1); CARBON DIOXIDE 29 mEq/L (21-32); CREATININE 1.2 mg/dL (0.6-1.3); GLUCOSE 186 mg/dL (70-105); PHOSPHORUS 2.6 mg/dL (2.5-4.9); UREA NITROGEN BLOOD 33 mg/dL (7-21)
[2023-10-01 08:26] LABS: HEMATOCRIT. 34.3 % (42.0-52.0); HEMOGLOBIN. 11.5 g/dL (14.0-18.0); MEAN CORPUSCULAR HEMOGLOBIN 26.3 pg (28.0-32.0); MEAN CORPUSCULAR HGB CONC 33.5 g/dL (31.0-37.0); MEAN CORPUSCULAR VOLUME 78.5 fL (80.0-94.0); MEAN PLATELET VOLUME 8.6 fl (7.4-10.4); PLATELET 268 x1000/uL (130-400); RED BLOOD CELL COUNT 4.38 mill/uL (4.7-6.1); RED CELL DISTRIBUTION WIDTH 18.2 % (11.6-14.6); WHITE BLOOD COUNT 8.2 x1000/uL (4.5-11.0)
[2023-10-01 08:36] LABS: DIFFERENTIAL COMMENT 1
[2023-10-01 09:29] LABS: BG BASE EXCESS 0.7 mmol/L (-2.0-2.0); BG CARBOXYHEMOGLOBIN 0.2 % (0.5-1.5); BG DEOXYHEMOGLOBIN 1.7 % (0.0-5.0); BG HCO3 ACT 25.4 mmol/L (22.0-26.0); BG METHEMOGLOBIN 0.2 % (0.0-1.5); BG OXYGEN SATURATION 98.3 % (92.0-98.5); BG OXYHEMOGLOBIN 97.9 % (94.0-97.0); BG PO2 133.9 mmHg (75.0-100.0); BG SAMPLE SITE RIGHT RADIAL; BG TOTAL HEMOGLOBIN 12.4 g/dL (12.0-18.0); BG TOTAL RESPIRATORY RATE 18 b/min; BG VENT MODE VENT - SIMV
[2023-10-01] MEDS ORDERED: POTASSIUM CHLORIDE 20MEQ/PACKET PO NR (09:30)
[2023-10-01] MEDS: METOLAZONE 2.5MG TABLET NG SCH ×2 (10:27→19:01)
[2023-10-01] MEDS: LEVETIRACETAM 1,500 MG in SODIUM CHLORIDE 0.9% 100 ML IV SCH ×2 (10:27→20:25)
[2023-10-01] MEDS: CARVEDILOL 12.5MG TABLET NG SCH ×2 (10:28→20:25)
[2023-10-01] MEDS: PHENYTOIN 100 MG/4 ML UDC NG SCH ×2 (10:29→19:01)
[2023-10-01] MEDS: INSULIN GLARGINE 100 UNITS/ML SUBCUT SCH ×2 (10:32→23:14)
[2023-10-01] MEDS: MEROPENEM 1,000 MG in SODIUM CHLORIDE 0.9% 100 ML IV SCH ×3 (11:17→22:58)
[2023-10-01 16:55] LABS: MICROCYTOSIS 1+; PLATELET ESTIMATE NORMAL
[2023-10-02] VITALS (20 sets, daily range): BP systolic 111–145; BP diastolic 61–111; PULSE 67–87; RESP 14–29; TEMP 98.2–99.1
[2023-10-02] MEDS: BLOOD SUGAR DIAGNOSTIC STRIP TEST SCH ×3 (05:10→17:31)
[2023-10-02] MEDS: METOCLOPRAMIDE HCL 10MG/2ML VIAL IV SCH ×2 (05:12→11:42)
[2023-10-02] MEDS: MEROPENEM 1,000 MG in SODIUM CHLORIDE 0.9% 100 ML IV SCH ×2 (05:18→17:20)
[2023-10-02] MEDS: INSULIN LISPRO 100 UNITS/ML SUBCUT SCH ×3 (05:18→17:29)
[2023-10-02 06:38] LABS: BASOPHILS % 0.3 % (0.0-2.0); DIFFERENTIAL COMMENT 0; EOSINOPHILS % 1.3 % (0.0-5.0); HEMATOCRIT. 35.2 % (42.0-52.0); HEMOGLOBIN. 11.6 g/dL (14.0-18.0); LYMPHOCYTES % 18.3 % (20.0-50.0); MEAN CORPUSCULAR HGB CONC 33.1 g/dL (31.0-37.0); MEAN CORPUSCULAR VOLUME 78.4 fL (80.0-94.0); MEAN PLATELET VOLUME 8.4 fl (7.4-10.4); MONOCYTES % 7.9 % (2.0-8.0); NEUTROPHILS % 72.2 % (40.0-76.0); PLATELET 269 x1000/uL (130-400); RED BLOOD CELL COUNT 4.48 mill/uL (4.7-6.1); RED CELL DISTRIBUTION WIDTH 18.2 % (11.6-14.6); WHITE BLOOD COUNT 7.6 x1000/uL (4.5-11.0)
[2023-10-02 07:24] LABS: CALCIUM 9.1 mg/dL (8.5-10.1); CARBON DIOXIDE 28 mEq/L (21-32); CHLORIDE 116 mEq/L (98-107); GLUCOSE 213 mg/dL (70-105); INDEX HEMOLYSI 1 (1-3); INDEX ICTERIC 1 (1-4); INDEX LIPEMIC 1 (1-3); POTASSIUM 3.7 mEq/L (3.5-5.1); SODIUM 148 mEq/L (136-145); UREA NITROGEN BLOOD 33 mg/dL (7-21)
[2023-10-02] MEDS: METOLAZONE 2.5MG TABLET NG SCH ×2 (10:03→17:20)
[2023-10-02] MEDS: CARVEDILOL 12.5MG TABLET NG SCH ×2 (10:03→21:36)
[2023-10-02] MEDS: PHENYTOIN 100 MG/4 ML UDC NG SCH ×2 (10:03→17:20)
[2023-10-02] MEDS: INSULIN GLARGINE 100 UNITS/ML SUBCUT SCH ×2 (10:05→21:37)
[2023-10-02] MEDS: LEVETIRACETAM 1,500 MG in SODIUM CHLORIDE 0.9% 100 ML IV SCH ×2 (10:21→21:36)
[2023-10-03] VITALS (25 sets, daily range): BP systolic 97–138; BP diastolic 57–78; PULSE 69–105; RESP 14–22; TEMP 97.2–99.1
[2023-10-03] MEDS: BLOOD SUGAR DIAGNOSTIC STRIP TEST SCH ×4 (00:45→18:12)
[2023-10-03] MEDS: MEROPENEM 1,000 MG in SODIUM CHLORIDE 0.9% 100 ML IV SCH ×4 (00:45→23:37)
[2023-10-03] MEDS: INSULIN LISPRO 100 UNITS/ML SUBCUT SCH ×4 (05:58→18:14)
[2023-10-03 07:05] LABS: CHLORIDE 116 mEq/L (98-107); INDEX HEMOLYSI 1 (1-3); INDEX ICTERIC 1 (1-4); INDEX LIPEMIC 1 (1-3); POTASSIUM 3.6 mEq/L (3.5-5.1); SODIUM 146 mEq/L (136-145)
[2023-10-03 07:07] LABS: BASOPHILS % 0.4 % (0.0-2.0); DIFFERENTIAL COMMENT 0; EOSINOPHILS % 1.1 % (0.0-5.0); HEMATOCRIT. 35.3 % (42.0-52.0); HEMOGLOBIN. 11.8 g/dL (14.0-18.0); LYMPHOCYTES % 19.2 % (20.0-50.0); MEAN CORPUSCULAR HEMOGLOBIN 25.9 pg (28.0-32.0); MEAN CORPUSCULAR HGB CONC 33.3 g/dL (31.0-37.0); MEAN CORPUSCULAR VOLUME 77.7 fL (80.0-94.0); MEAN PLATELET VOLUME 8.5 fl (7.4-10.4); MONOCYTES % 7.6 % (2.0-8.0); NEUTROPHILS % 71.7 % (40.0-76.0); PLATELET 289 x1000/uL (130-400); RED BLOOD CELL COUNT 4.55 mill/uL (4.7-6.1); RED CELL DISTRIBUTION WIDTH 18.2 % (11.6-14.6); WHITE BLOOD COUNT 9.4 x1000/uL (4.5-11.0)
[2023-10-03 07:13] LABS: CALCIUM 9.1 mg/dL (8.5-10.1); CARBON DIOXIDE 28 mEq/L (21-32); CREATININE 1.1 mg/dL (0.6-1.3); GLUCOSE 153 mg/dL (70-105); UREA NITROGEN BLOOD 33 mg/dL (7-21)
[2023-10-03] MEDS: PHENYTOIN 100 MG/4 ML UDC NG SCH ×2 (08:28→16:43)
[2023-10-03] MEDS: METOLAZONE 2.5MG TABLET NG SCH (08:30)
[2023-10-03] MEDS: CARVEDILOL 12.5MG TABLET NG SCH ×2 (08:30→20:40)
[2023-10-03] MEDS: LEVETIRACETAM 1,500 MG in SODIUM CHLORIDE 0.9% 100 ML IV SCH ×2 (08:54→20:41)
[2023-10-03] MEDS: INSULIN GLARGINE 100 UNITS/ML SUBCUT SCH ×2 (09:17→21:12)
[2023-10-03] MEDS ORDERED: SENNOSIDES 8.6MG TABLET GT PRN (21:00)
[2023-10-03] MEDS ORDERED: LACTULOSE 20G/30ML UDC PO PRN (21:00)
[2023-10-04] VITALS (29 sets, daily range): BP systolic 111–145; BP diastolic 62–84; PULSE 70–86; RESP 12–22; TEMP 98.1–98.7
[2023-10-04] MEDS: BLOOD SUGAR DIAGNOSTIC STRIP TEST SCH ×4 (00:17→17:35)
[2023-10-04] MEDS: INSULIN LISPRO 100 UNITS/ML SUBCUT SCH ×4 (06:00→17:36)
[2023-10-04] MEDS: MEROPENEM 1,000 MG in SODIUM CHLORIDE 0.9% 100 ML IV SCH ×2 (06:38→15:42)
[2023-10-04] MEDS: LEVETIRACETAM 1,500 MG in SODIUM CHLORIDE 0.9% 100 ML IV SCH ×2 (08:58→21:40)
[2023-10-04] MEDS: CARVEDILOL 12.5MG TABLET NG SCH ×2 (08:58→21:41)
[2023-10-04] MEDS: PHENYTOIN 100 MG/4 ML UDC NG SCH ×2 (08:59→17:35)
[2023-10-04] MEDS: DOCUSATE SODIUM SUGAR FREE 100MG/10ML UDC NG SCH (08:59)
[2023-10-04] MEDS: INSULIN GLARGINE 100 UNITS/ML SUBCUT SCH ×2 (09:02→21:43)
[2023-10-04] MEDS ORDERED: LACTULOSE 20G/30ML UDC GT NR (16:30)
[2023-10-04] MEDS ORDERED: IPRATROPIUM/ALBUTEROL 0.5-3(2.5)MG/3ML NEB HHN PRN (17:30)
[2023-10-05] VITALS (26 sets, daily range): BP systolic 112–136; BP diastolic 69–103; PULSE 69–84; RESP 14–24; TEMP 97.2–98.5
[2023-10-05] MEDS: MEROPENEM 1,000 MG in SODIUM CHLORIDE 0.9% 100 ML IV SCH ×3 (04:49→17:41)
[2023-10-05] MEDS: INSULIN LISPRO 100 UNITS/ML SUBCUT SCH ×4 (06:00→18:00)
[2023-10-05] MEDS: BLOOD SUGAR DIAGNOSTIC STRIP TEST SCH ×4 (06:00→18:00)
[2023-10-05 07:20] LABS: CALCIUM 9.1 mg/dL (8.7-10.4); CARBON DIOXIDE 31 mEq/L (21-32); CHLORIDE 115 mEq/L (98-107); CREATININE 1.1 mg/dL (0.6-1.3); GLUCOSE 125 mg/dL (70-105); POTASSIUM 3.9 mEq/L (3.5-5.1); SODIUM 152 mEq/L (136-145); UREA NITROGEN BLOOD 31 mg/dL (9-23)
[2023-10-05 07:34] LABS: BASOPHILS % 0.4 % (0.0-2.0); DIFFERENTIAL COMMENT 0; EOSINOPHILS % 1.1 % (0.0-5.0); HEMATOCRIT. 36.2 % (42.0-52.0); HEMOGLOBIN. 11.8 g/dL (14.0-18.0); MEAN CORPUSCULAR HEMOGLOBIN 25.6 pg (28.0-32.0); MEAN CORPUSCULAR HGB CONC 32.6 g/dL (31.0-37.0); MEAN CORPUSCULAR VOLUME 78.6 fL (80.0-94.0); MEAN PLATELET VOLUME 8.5 fl (7.4-10.4); MONOCYTES % 8.7 % (2.0-8.0); NEUTROPHILS % 71.8 % (40.0-76.0); PLATELET 255 x1000/uL (130-400); RED BLOOD CELL COUNT 4.61 mill/uL (4.7-6.1); WHITE BLOOD COUNT 7.7 x1000/uL (4.5-11.0)
[2023-10-05] MEDS: CARVEDILOL 12.5MG TABLET NG SCH ×2 (08:22→21:43)
[2023-10-05] MEDS: PHENYTOIN 100 MG/4 ML UDC NG SCH ×2 (08:22→17:42)
[2023-10-05] MEDS: METOLAZONE 2.5MG TABLET GT SCH (08:23)
[2023-10-05] MEDS: DOCUSATE SODIUM SUGAR FREE 100MG/10ML UDC NG SCH (08:32)
[2023-10-05] MEDS: LEVETIRACETAM 1,500 MG in SODIUM CHLORIDE 0.9% 100 ML IV SCH ×2 (08:47→21:53)
[2023-10-05] MEDS: INSULIN GLARGINE 100 UNITS/ML SUBCUT SCH ×2 (11:37→21:44)
[2023-10-06] VITALS (25 sets, daily range): BP systolic 104–146; BP diastolic 63–93; PULSE 73–84; RESP 14–27; TEMP 96.6–97.7
[2023-10-06] MEDS: MEROPENEM 1,000 MG in SODIUM CHLORIDE 0.9% 100 ML IV SCH ×3 (00:01→16:52)
[2023-10-06] MEDS: BLOOD SUGAR DIAGNOSTIC STRIP TEST SCH ×4 (00:01→18:00)
[2023-10-06] MEDS: INSULIN LISPRO 100 UNITS/ML SUBCUT SCH ×4 (00:58→18:00)
[2023-10-06 06:39] LABS: BASOPHILS % 0.6 % (0.0-2.0); DIFFERENTIAL COMMENT 0; EOSINOPHILS % 1.2 % (0.0-5.0); HEMATOCRIT. 36.6 % (42.0-52.0); MEAN CORPUSCULAR HGB CONC 32.8 g/dL (31.0-37.0); MEAN CORPUSCULAR VOLUME 79.3 fL (80.0-94.0); MEAN PLATELET VOLUME 8.8 fl (7.4-10.4); MONOCYTES % 8.2 % (2.0-8.0); PLATELET 255 x1000/uL (130-400); RED BLOOD CELL COUNT 4.62 mill/uL (4.7-6.1); RED CELL DISTRIBUTION WIDTH 18.8 % (11.6-14.6); WHITE BLOOD COUNT 8.2 x1000/uL (4.5-11.0)
[2023-10-06] MEDS: PHENYTOIN 100 MG/4 ML UDC NG SCH ×2 (08:26→17:37)
[2023-10-06] MEDS: CARVEDILOL 12.5MG TABLET NG SCH ×2 (08:26→21:43)
[2023-10-06] MEDS: DOCUSATE SODIUM SUGAR FREE 100MG/10ML UDC NG SCH (08:32)
[2023-10-06] MEDS: LEVETIRACETAM 1,500 MG in SODIUM CHLORIDE 0.9% 100 ML IV SCH ×2 (10:17→21:33)
[2023-10-06] MEDS: INSULIN GLARGINE 100 UNITS/ML SUBCUT SCH (10:51)
[2023-10-07] VITALS (18 sets, daily range): BP systolic 95–147; BP diastolic 59–88; PULSE 71–86; RESP 13–25; TEMP 97–98.6; O2SAT 98
[2023-10-07] MEDS: INSULIN GLARGINE 100 UNITS/ML SUBCUT SCH ×2 (00:59→09:16)
[2023-10-07] MEDS: MEROPENEM 1,000 MG in SODIUM CHLORIDE 0.9% 100 ML IV SCH ×3 (01:00→14:19)
[2023-10-07 06:19] LABS: BASOPHILS % 0.2 % (0.0-2.0); DIFFERENTIAL COMMENT 0; EOSINOPHILS % 0.9 % (0.0-5.0); HEMATOCRIT. 36.8 % (42.0-52.0); HEMOGLOBIN. 12.1 g/dL (14.0-18.0); LYMPHOCYTES % 22.5 % (20.0-50.0); MEAN CORPUSCULAR HEMOGLOBIN 25.7 pg (28.0-32.0); MEAN CORPUSCULAR HGB CONC 32.9 g/dL (31.0-37.0); MEAN CORPUSCULAR VOLUME 78.1 fL (80.0-94.0); MEAN PLATELET VOLUME 8.8 fl (7.4-10.4); MONOCYTES % 8.2 % (2.0-8.0); NEUTROPHILS % 68.2 % (40.0-76.0); PLATELET 245 x1000/uL (130-400); RED BLOOD CELL COUNT 4.71 mill/uL (4.7-6.1); RED CELL DISTRIBUTION WIDTH 18.7 % (11.6-14.6)
[2023-10-07] MEDS: BLOOD SUGAR DIAGNOSTIC STRIP TEST SCH ×4 (06:25→18:25)
[2023-10-07 06:43] LABS: CARBON DIOXIDE 28 mEq/L (21-32); CHLORIDE 112 mEq/L (98-107); GLUCOSE 177 mg/dL (70-105); POTASSIUM 3.9 mEq/L (3.5-5.1); SODIUM 149 mEq/L (136-145); UREA NITROGEN BLOOD 39 mg/dL (9-23)
[2023-10-07] MEDS: PHENYTOIN 100 MG/4 ML UDC NG SCH ×2 (09:00→18:28)
[2023-10-07] MEDS: DOCUSATE SODIUM SUGAR FREE 100MG/10ML UDC NG SCH (09:00)
[2023-10-07] MEDS: LEVETIRACETAM 1,500 MG in SODIUM CHLORIDE 0.9% 100 ML IV SCH (09:18)
[2023-10-07] MEDS: METOLAZONE 2.5MG TABLET GT SCH (09:30)
== END 2023-10-07 21:49 | DRG 4 ==
LOC: ER 13:19 → 7WST 15:34 → EDBEDREQ 15:36 → EDBEDREQSVC 15:36 → MICUSO 09-17 10:17 → 5EST 09-27 17:35
PROVIDERS: ADMIT Internal Medicine; ATTEND Internal Medicine
PROC: 5A1955Z Respiratory Ventilation, Greater than 96 Consecutive Hours (ICD-10-PCS; 2023-09-17)
PROC: 0BH17EZ Insertion of Endotracheal Airway into Trachea, Via Natural or Artificial Opening (ICD-10-PCS; 2023-09-17)
PROC: 5A12012 Performance of Cardiac Output, Single, Manual (ICD-10-PCS; 2023-09-17)
PROC: 02HV33Z Insertion of Infusion Device into Superior Vena Cava, Percutaneous Approach (ICD-10-PCS; 2023-09-17)
PROC: B548ZZA Ultrasonography of Superior Vena Cava, Guidance (ICD-10-PCS; 2023-09-17)
PROC: 04HY32Z Insertion of Monitoring Device into Lower Artery, Percutaneous Approach (ICD-10-PCS; 2023-09-17)
PROC: 0QBN0ZZ Excision of Right Metatarsal, Open Approach (ICD-10-PCS; 2023-09-19)
PROC: 05H633Z Insertion of Infusion Device into Left Subclavian Vein, Percutaneous Approach (ICD-10-PCS; 2023-09-20)
PROC: B547ZZA Ultrasonography of Left Subclavian Vein, Guidance (ICD-10-PCS; 2023-09-20)
PROC: 0B110F4 Bypass Trachea to Cutaneous with Tracheostomy Device, Open Approach (ICD-10-PCS; principal; 2023-09-26)
PROC: 0DB78ZX Excision of Stomach, Pylorus, Via Natural or Artificial Opening Endoscopic, Diagnostic (ICD-10-PCS; 2023-09-27)
PROC: 0DH63UZ Insertion of Feeding Device into Stomach, Percutaneous Approach (ICD-10-PCS; 2023-09-27)
PROC: 4A00X4Z Measurement of Central Nervous Electrical Activity, External Approach (ICD-10-PCS; 2023-10-02)
DX: A41.51 Sepsis due to Escherichia coli [E. coli] (principal); E43 Unspecified severe protein-calorie malnutrition; J96.01 Acute respiratory failure with hypoxia; I46.9 Cardiac arrest, cause unspecified; J69.0 Pneumonitis due to inhalation of food and vomit; N17.0 Acute kidney failure with tubular necrosis; I50.23 Acute on chronic systolic (congestive) heart failure; G93.41 Metabolic encephalopathy; I47.20 Ventricular tachycardia, unspecified; I13.0 Hypertensive heart and chronic kidney disease with heart failure and stage 1 through stage 4 chronic kidney disease, or unspecified chronic kidney disease; I42.9 Cardiomyopathy, unspecified; R57.9 Shock, unspecified; M86.8X7 Other osteomyelitis, ankle and foot; E11.52 Type 2 diabetes mellitus with diabetic peripheral angiopathy with gangrene; L02.611 Cutaneous abscess of right foot; E86.0 Dehydration; K74.60 Unspecified cirrhosis of liver; R62.7 Adult failure to thrive; E87.6 Hypokalemia; N18.9 Chronic kidney disease, unspecified; E11.22 Type 2 diabetes mellitus with diabetic chronic kidney disease; E88.09 Other disorders of plasma-protein metabolism, not elsewhere classified; G40.909 Epilepsy, unspecified, not intractable, without status epilepticus; K29.70 Gastritis, unspecified, without bleeding; L89.010 Pressure ulcer of right elbow, unstageable; L89.210 Pressure ulcer of right hip, unstageable; L97.519 Non-pressure chronic ulcer of other part of right foot with unspecified severity; F41.9 Anxiety disorder, unspecified; R13.12 Dysphagia, oropharyngeal phase; Z87.891 Personal history of nicotine dependence; Z68.30 Body mass index [BMI] 30.0-30.9, adult; Z85.46 Personal history of malignant neoplasm of prostate; Z95.810 Presence of automatic (implantable) cardiac defibrillator; Z79.4 Long term (current) use of insulin; Z79.899 Other long term (current) drug therapy; Z93.0 Tracheostomy status; Z93.1 Gastrostomy status; Z68.26 Body mass index [BMI] 26.0-26.9, adult
CPT/HCPCS: 31500; 36415; 36573; 36600; 71045; 73620; 76700; 76770; 80048; 80053; 80185; 80202; 81003; 82010; 82040; 82140; 82375; 82550; 82805; 82962; 83036; 83605; 83735; 83880; 84100; 84134; 84145; 84478; 84484; 85025; 85027; 87070; 87075; 87077; 87186; 88304; 88305; 88311; 88312; 88313; 93005; 93306; 94002; 94003; 94640; 95816; 97022; 97161; 99291; A6261; C1725; J1100; J1165; J1580; J1815; J1953; J2060; J2185; J2405; J2543; J2704; J2765; J3370; J3480; J3490; J7030; J7050; J7060; J7070; A4315